=== PATIENT | female | born 1940 | race Caucasian/White ===

== ENCOUNTER 2021-06-24 20:54 | Emergency (ER) | payer MEDICAID ==
[~2021-06-24] VITALS: Ht 149.9 cm; Wt 49.9 kg
--- NOTE | 2021-06-24 21:05 | NUR ---
PT BIBRA C/O POSTERIOR HEAD PAIN S/P UNWITNESSED FALL AND HTN . PT AAOX4 BREATHING EVENLY AND UNLABORED. PT UNSURE OF KO. UPON ASSESSMNET, PT HAS HEMOTOMA ON POSTERIOR HEAD, BLEEDING NOTED. EMT AT BEDSIDE FOR WOUND CARE. PT NEURO CHECKS INTACT. PT ATTACHED TO MONITOR AND POX. PT CHANGED INTO GOWN AND GIVEN BLANKET AND CALL LIGHT WITHIN REACH
--- NOTE | 2021-06-24 21:08 | NUR ---
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
--- NOTE | 2021-06-24 21:28 | NUR ---
TAKEN TO RADIOLOGY
[2021-06-24 21:29] LABS: BASOPHILS % (AUTO) 0.6 % (0.0-2.0); HEMATOCRIT 36 % (33-45); HEMOGLOBIN 11.7 g/dL (11.5-14.8); LYMPHOCYTES # (AUTO) 1.7 K/uL (0.8-4.8); MEAN CORPUSCULAR HGB CONC 32 g/dl (31.0-36.0); MEAN CORPUSCULAR VOLUME 82 fL (82-100); MONOCYTES # (AUTO) 0.6 K/uL (0.1-1.30); MONOCYTES % (AUTO) 9.9 % (2.0-12.0); NEUTROPHILS # (AUTO) 3.5 K/uL (1.8-8.9); NEUTROPHILS % (AUTO) 58.5 % (43.0-81.0); PLATELET COUNT (AUTO) 241 K/uL (150-450); WHITE BLOOD COUNT (AUTO) 5.9 K/uL (4.3-11.0)
--- NOTE | 2021-06-24 21:39 | NUR ---
RETURNED FROM CT
[2021-06-24 21:41] LABS: CARBON DIOXIDE 29 mmol/L (21-32); CHLORIDE 100 mmol/L (98-107); GLUCOSE 146 mg/dL (74-106); POTASSIUM 3.6 mmol/L (3.5-5.1); SODIUM SERUM 138 mmol/L (136-145); UREA NITROGEN, BLOOD 27 mg/dL (7-18)
[2021-06-24 21:48] LABS: ALANINE AMINOTRANSFERASE 32 U/L (12-78); ALBUMIN 3.8 g/dL (3.4-5.0); ALKALINE PHOSPHATASE 80 U/L (46-116); ASPARTATE AMINOTRANSFERASE 27 U/L (15-37); BILIRUBIN,DIRECT 0.1 mg/dL (0.0-0.2); BILIRUBIN,TOTAL 0.3 mg/dL (0.2-1.0); TOTAL PROTEIN, SERUM 7.3 g/dL (6.4-8.2)
[2021-06-24] MEDS ORDERED: LABETALOL HCL IV 100MG VIAL ONE (22:26)
[2021-06-24] MEDS ORDERED: IV NS 0.9% 1,000 ML BAG IV ONE (22:30)
[2021-06-24] MEDS ORDERED: LABETALOL 20 MG/4 ML VIAL IV ONE (22:30)
[2021-06-24 22:40] LABS: BILIRUBIN,URINE NEGATIVE (NEGATIVE); COLOR,URINE YELLOW (YELLOW); LEUKOCYTE ESTERASE ,URINE NEGATIVE (NEGATIVE); NITRITE, URINE NEGATIVE (NEGATIVE); PH,URINE 6.5 (5.0-8.0); PROTEIN,URINE 100 mg/dl (NEGATIVE); UGLUCOSE NEGATIVE (NEGATIVE); UROBILINOGEN,URINE 0.2 EU/dL (0.2)
[2021-06-24 22:59] LABS: BACTERIA,URINE Few /HPF (None Seen); SQUAMOUS EPITHELIAL CELL,UR Few /HPF (None Seen)
--- NOTE | 2021-06-24 23:05 | NUR ---
Patient does not wish to proceed with medical care recommended by . Patient given information related to possible complications, up to and including , which could occur as a result of leaving the hospital at this time. Patient verbalizes understanding of risks involved due to leaving against medical advice. da has signed AMA form. Addendum: 06/24/21 at [id number] by TREY Patient does not wish to proceed with medical care recommended by . Patient given information related to possible complications, up to and including , which could occur as a result of leaving the hospital at this time. Patient and daughter verbalizes understanding of risks involved due to leaving against medical advice. daughter has signed AMA form. Education given on medical care.
--- NOTE | 2021-06-24 23:08 | NUR ---
DRESSING TO THE HEAD KEPT C/D/I.
[2021-06-24 23:58] VITALS: BP 158/84
== END 2021-06-24 23:08 | disposition left against medical advice (07) ==
LOC: ER 20:57
DX: S00.03XA Contusion of scalp, initial encounter (principal); R55 Syncope and collapse; I10 Essential (primary) hypertension; R41.0 Disorientation, unspecified; R00.0 Tachycardia, unspecified; X58.XXXA Exposure to other specified factors, initial encounter; Y93.89 Activity, other specified; Y92.89 Other specified places as the place of occurrence of the external cause; Y99.8 Other external cause status
CPT/HCPCS: 36415; 70450; 71045; 72125; 80048; 80076; 81001; 84484; 85025; 85730; 93005; 96374; 99285; A6403 ×3; J3490 ×2; J7030